=== PATIENT | male | born 1945 | race Caucasian/White ===

== ENCOUNTER → 2017-07-04 | Outpatient (CLI) | payer BC | END | disposition home or self-care (01) | LOC: US 10:04 | DX: I12.9 Hypertensive chronic kidney disease with stage 1 through stage 4 chronic kidney disease, or unspecified chronic kidney disease (principal); N18.3 Chronic kidney disease, stage 3 (moderate); N28.1 Cyst of kidney, acquired; Z87.891 Personal history of nicotine dependence | CPT/HCPCS: 76770 ==

== ENCOUNTER 2019-07-02 10:26 | Emergency (ER) | payer BC ==
[~2019-07-02] VITALS: Ht 177.8 cm; Wt 81.8 kg
[2019-07-02] MEDS ORDERED: ASPIRIN 325 MG TABLET PO ONE (10:45)
[2019-07-02] MEDS ORDERED: IV NORMAL SALINE 1000ML BAG 1,000 ML IV ONE (10:45)
[2019-07-02] MEDS ORDERED: DEXAMETHASONE SOD PHOS 4 MG/ML VIAL IVP ONE (10:45)
--- NOTE | 2019-07-02 10:52 | PHYS DOC ---
Past Medical History Past Medical History: GERD, High Cholesterol Past Surgical History: Other Additional Past Surgical Histo: broken leg Smoking Status: Current Every Day Smoker Alcohol Use: None Drug Use: None Adult General Chief Complaint Chief Complaint: OTHER COMPLAINTS HPI HPI 74-year-old male presents with report of abnormal EKG that was obtained at urgent care prior to arrival. Patient reports he was instructed to present to the ER for further evaluation based on abnormal EKG. Patient reports he had presented due to URI type symptoms including nonproductive cough and shortness of breath which started 2 days ago. Patient denies any chest pain. Denies leg swelling or calf tenderness. Patient reports associated nasal congestion and generalized malaise. Patient reports his has similar symptoms and was diagnosed with upper respiratory inspection and started on antibiotics and other supportive measures. Patient denies history of known arrhythmia. Denies history of cardiac stents. Patient does report cardiac risk factors of high cholesterol and smoking. Review of Systems Review of Systems Constitutional: Denies fever; reports generalized malaise Eyes: Denies redness or eye pain HENT: Reports nasal congestion; denies sore throat Respiratory: Reports cough; denies shortness of breath Cardiovascular: Denies chest pain or palpitations GI: Denies abdominal pain, nausea, or vomiting : Denies dysuria or hematuria Musculoskeletal: Denies back pain or joint pain Integument: Denies rash or skin lesions Neurologic: Denies headache, focal weakness or sensory changes Complete systems were reviewed and found to be within normal limits, except as documented in this note. Current Medications Current Medications Current Medications Medications (Trade) Dose Ordered Sig/Branden Start Time Stop Time Status Last Admin Dose Admin Aspirin (Marissa Aspirin) 325 mg 1X ONCE 07/02/19 10:45 07/02/19 10:46 DC 07/02/19 11:19 325 MG Dexamethasone Sodium Phosphate (Decadron) 10 mg 1X ONCE 07/02/19 10:45 07/02/19 10:47 DC 07/02/19 11:19 10 MG Sodium Chloride 1,000 ml @ 1,000 mls/hr 1X ONCE 07/02/19 10:45 07/02/19 11:44 DC 07/02/19 11:20 1,000 MLS/HR Allergies Allergies Allergies Coded Allergies Type Severity Reaction Last Updated Verified Penicillins Allergy Unknown 04/11/14 No Sulfa (Sulfonamide Antibiotics) Allergy Unknown 04/11/14 No Physical Exam Physical Exam Constitutional: Well developed, well nourished, no acute distress, non-toxic appearance HENT: Normocephalic, atraumatic, oropharynx moist, TMs clear, pharynx without erythema or exudate, nasal congestion noted Eyes: Conjunctiva normal, no discharge Neck: Normal range of motion, no tenderness, supple Cardiovascular: Heart rate normal, irregular rhythm Lungs & Thorax: Bilateral breath sounds clear to auscultation, no wheezing/rales/rhonchi Abdomen: Soft, no tenderness Skin: Warm, dry, no erythema, no rash Extremities: No tenderness, ROM intact, no edema Neurologic: Alert and oriented X 3, no focal deficits noted Psychologic: Affect normal, judgment normal Current Patient Data Vital Signs Vital Signs Date Time Temp Pulse Resp B/P (MAP) Pulse Ox O2 Delivery O2 Flow Rate FiO2 07/02/19 11:07 96 145/62 (89) Room Air 97.0 07/02/19 10:55 98.2 20 97 98.2 Lab Values Laboratory Tests Test 07/02/19 10:48 07/02/19 10:50 07/02/19 12:10 Influenza Type A Antigen Negative (NEGATIVE) Influenza Type B Antigen Negative (NEGATIVE) White Blood Count 9.1 x10^3/uL (4.0-11.0) Red Blood Count 4.44 x10^6/uL (4.30-5.70) Hemoglobin 14.3 g/dL (13.0-17.5) Hematocrit 42.6 % (39.0-53.0) Mean Corpuscular Volume 96 fL (79-100) Mean Corpuscular Hemoglobin 32 pg (25-35) Mean Corpuscular Hemoglobin Concent 34 g/dL (31-37) Red Cell Distribution Width 13.1 % (11.5-14.5) Platelet Count 210 x10^3/uL (140-400) Neutrophils (%) (Auto) 70 % (31-73) Lymphocytes (%) (Auto) 17 % (24-48) L Monocytes (%) (Auto) 11 % (0-9) H Eosinophils (%) (Auto) 2 % (0-3) Basophils (%) (Auto) 1 % (0-3) Neutrophils # (Auto) 6.4 x10^3/uL (1.8-7.7) Lymphocytes # (Auto) 1.5 x10^3/uL (1.0-4.8) Monocytes # (Auto) 1.0 x10^3/uL (0.0-1.1) Eosinophils # (Auto) 0.2 x10^3/uL (0.0-0.7) Basophils # (Auto) 0.0 x10^3/uL (0.0-0.2) Prothrombin Time 12.7 SEC (11.7-14.0) Prothrombin Time INR 1.0 (0.8-1.1) Activated Partial Thromboplast Time 33 SEC (24-38) Sodium Level 137 mmol/L (136-145) Potassium Level 4.2 mmol/L (3.5-5.1) Chloride Level 103 mmol/L (98-107) Carbon Dioxide Level 20 mmol/L (21-32) L Anion Gap 14 (6-14) Blood Urea Nitrogen 23 mg/dL (8-26) Creatinine 1.7 mg/dL (0.7-1.3) H Estimated GFR (Cockcroft-Gault) 39.4 BUN/Creatinine Ratio 14 (6-20) Glucose Level 104 mg/dL (70-99) H Lactic Acid Level 1.4 mmol/L (0.4-2.0) Calcium Level 9.1 mg/dL (8.5-10.1) Magnesium Level 1.9 mg/dL (1.8-2.4) Total Bilirubin 0.4 mg/dL (0.2-1.0) Aspartate Amino Transferase (AST) 25 U/L (15-37) Alanine Aminotransferase (ALT) 29 U/L (16-63) Alkaline Phosphatase 35 U/L (46-116) L Creatine Kinase 76 U/L (39-308) Creatine Kinase MB (Mass) 1.3 ng/mL (0.0-3.6) Creatine Kinase MB Relative Index 1.7 % (0-4) Troponin I Quantitative < 0.017 ng/mL (0.000-0.055) MB-Kza-F-Type Natriuretic Peptide 526 pg/mL (0-449) H Total Protein 7.7 g/dL (6.4-8.2) Albumin 4.0 g/dL (3.4-5.0) Albumin/Globulin Ratio 1.1 (1.0-1.7) Lipase 112 U/L (73-393) Thyroid Stimulating Hormone (TSH) 1.493 uIU/mL (0.358-3.74) Free Thyroxine 1.05 ng/dL (0.76-1.46) Free Triiodothyronine (T3) pg/mL 2.51 pg/mL (2.18-3.98) Urine Collection Type Unknown Urine Color Yellow Urine Clarity Clear Urine pH 5.0 Urine Specific [place] 1.015 Urine Protein Negative mg/dL (NEG-TRACE) Urine Glucose (UA) Negative mg/dL (NEG) Urine Ketones (Stick) Negative mg/dL (NEG) Urine Blood Negative (NEG) Urine Nitrite Negative (NEG) Urine Bilirubin Negative (NEG) Urine Urobilinogen Dipstick 0.2 mg/dL (0.2 mg/dL) Urine Leukocyte Esterase Negative (NEG) Urine RBC 0 /HPF (0-2) Urine WBC 0 /HPF (0-4) Urine Squamous Epithelial Cells Occ /LPF Urine Bacteria 0 /HPF (0-FEW) Urine Hyaline Casts Few /HPF Urine Mucus Slight /LPF Laboratory Tests 07/02/19 10:50 Laboratory Tests 07/02/19 10:50 EKG EKG @1045 NSR at 95bpm, NO ST elevation. frequent PVCs/Bigeminy, no prior EKG per [facility] review Radiology/Procedures Radiology/Procedures PROCEDURE: CHEST PA & LATERAL CHEST PA LATERAL History: Cough, abnormal EKG Comparison: 04/24/2019 chest x-ray exam. Findings: Frontal and lateral views of the chest were obtained. The cardiomediastinal silhouette is normal. Pulmonary vasculature is normal. The lungs are clear. No pleural effusion or pneumothorax is seen. There is no acute bone abnormality. Calcified granuloma involves the left mid thoracic level. Scoliosis noted. IMPRESSION: No acute cardiopulmonary process. Electronically signed by: Vinay Mcdermott MD (07/02/2019 11:06 AM) [id number] Course & Med Decision Making Course & Med Decision Making Pertinent Labs and Imaging studies reviewed. (See chart for details) Patient presents with report of abnormal EKG from urgent care. Patient noted to have bigeminy on EKG which is same from urgent care. No prior EKG found per [facility]. Patient denies palpitations or chest pain. Denies history of cardiac disease. Patient does have cardiac risk factors of high cholesterol and smoking. Patient currently experiencing URI-type symptoms with positive sick contact and spouse. Symptomatic treatment provided for his respiratory symptoms. Labs obtained and posted to chart. Electrolytes within normal limits. Troponin also within normal limits. Thyroid studies obtained. CXR clear. Influenza negative. Patient was found to have elevated Creat. No prior lab value noted per [facility] review. Patient URI symptoms more likely viral bronchitis. Will hold antibiotic therapy at this time. Telemetry monitoring had noted possible run of V. tach while patient was in depa rtment however patient was asymptomatic. Patient offered admission for further observation and monitoring. Patient refusing and requests to be discharged home with close outpatient follow-up. Discussed case with Maite GORDILLO with Dr. Goins (cardiology) who is in agreement with close followup in office but reports patient can allow follow closely with PCP. Patient will likely require Holter monitor and 2D Echo. Patient notified of cardiology recommendations and is in agreement. Patient stable for discharge with outpatient follow-up with PCP/cardiology. Cardiology referral provided. Discussed findings and plan with patient, who acknowledges understanding and agreement. Dragon Disclaimer Dragon Disclaimer This electronic medical record was generated, in whole or in part, using a voice recognition dictation system. Departure Departure Impression: Primary Impression: Arrhythmia Additional Impressions: Ventricular bigeminy Bronchitis Disposition: HOME, SELF-CARE Condition: STABLE Referrals: JEFF SANTIAGO MD (PCP) LISA GOINS MD Patient Instructions: Acute Bronchitis, [id number], Cardiac Arrhythmia Additional Instructions: Please follow up with your family physician and/or cardiology. YOU NEED TO HAVE THE FOLLOWING STUDIES CHECKED: -2D ECHO OF THE HEART -HOLTER MONITOR Scripts Benzonatate (TESSALON PERLE) 100 Mg Capsule 100 MG PO TID PRN for COUGH, #20 CAP Prov: CONNIE JERONIMO DO 07/02/19 Prednisone (PREDNISONE) 20 Mg Tablet 2 TAB PO DAILY, #8 TAB Start this prescription tomorrow, Tuesday07/03/19 Prov: CONNIE JERONIMO DO 07/02/19 Problem Qualifiers Primary Impression: Arrhythmia Arrhythmia type: unspecified cardiac arrhythmia Qualified Codes: I49.9 - Cardiac arrhythmia, unspecified CONNIE JERONIMO DO Jul 02, 2019 10:52
[2019-07-02 11:07] VITALS: BP 145/62
[2019-07-02 11:09] LABS: BASO % 1 % (0-3); EOS # 0.2 x10^3/uL (0.0-0.7); EOS % 2 % (0-3); HEMATOCRIT 42.6 % (39.0-53.0); HEMOGLOBIN 14.3 g/dL (13.0-17.5); LYMPH # 1.5 x10^3/uL (1.0-4.8); LYMPH % 17 % (24-48); MEAN CORPUSCULAR HEMOGLOBIN 32 pg (25-35); MEAN CORPUSCULAR HGB CONC 34 g/dL (31-37); MEAN CORPUSCULAR VOLUME 96 fL (79-100); MONO % 11 % (0-9); NEUT # 6.4 x10^3/uL (1.8-7.7); NEUT % 70 % (31-73); PLATELET COUNT 210 x10^3/uL (140-400); RED BLOOD COUNT 4.44 x10^6/uL (4.30-5.70); RED CELL DISTRIBUTION WIDTH 13.1 % (11.5-14.5); WHITE BLOOD COUNT 9.1 x10^3/uL (4.0-11.0)
--- NOTE | 2019-07-02 11:09 | RAD ---
CHEST PA LATERAL History: Cough, abnormal EKG Comparison: 04/24/2019 chest x-ray exam. Findings: Frontal and lateral views of the chest were obtained. The cardiomediastinal silhouette is normal. Pulmonary vasculature is normal. The lungs are clear. No pleural effusion or pneumothorax is seen. There is no acute bone abnormality. Calcified granuloma involves the left mid thoracic level. Scoliosis noted. IMPRESSION: No acute cardiopulmonary process. Electronically signed by: Vinay Mcdermott MD (07/02/2019 11:06 AM) [id number]
[2019-07-02 11:24] LABS: CALCIUM 9.1 mg/dL (8.5-10.1); CREATININE 1.7 mg/dL (0.7-1.3); GFR 39.4; POTASSIUM 4.2 mmol/L (3.5-5.1)
[2019-07-02 11:26] LABS: PROTHROMBIN TIME PATIENT 12.7 SEC (11.7-14.0)
[2019-07-02 11:28] LABS: ALBUMIN/GLOBULIN RATIO 1.1 (1.0-1.7); MAGNESIUM 1.9 mg/dL (1.8-2.4); TOTAL BILIRUBIN 0.4 mg/dL (0.2-1.0); TOTAL PROTEIN 7.7 g/dL (6.4-8.2)
[2019-07-02 11:33] LABS: INFLUENZA A PATIENT NEGATIVE (NEGATIVE); INFLUENZA B PATIENT NEGATIVE (NEGATIVE)
[2019-07-02 12:36] LABS: FREE T4 1.05 ng/dL (0.76-1.46); THYROID STIM HORMONE (TSH) 1.493 uIU/mL (0.358-3.74)
[2019-07-02 12:44] LABS: BILIRUBIN,URINE NEGATIVE (NEG); CLARITY,URINE CLEAR; COLOR,URINE YELLOW; NITRITE,URINE NEGATIVE (NEG); PROTEIN,URINE NEGATIVE (NEG-TRACE); UROBILINOGEN,URINE 0.2 mg/dL (0.2 mg/dL)
[2019-07-02 13:13] LABS: HYALINE CASTS, URINE FEW /HPF; SQUAMOUS EPITHELIAL CELL,UR OCC /LPF
[2019-07-02 13:14] LABS: BACTERIA,URINE 0 /HPF (0-FEW); RBC,URINE 0 /HPF (0-2); WBC,URINE 0 /HPF (0-4)
[2019-07-02] MEDS ORDERED: BENZ100C PO (13:34)
[2019-07-02] MEDS ORDERED: PRED20TA PO (13:34)
--- NOTE | 2019-07-03 10:07 | EKG ---
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
== END 2019-07-02 13:40 | disposition home or self-care (01) ==
LOC: ER 10:26
DX: J40 Bronchitis, not specified as acute or chronic (principal); R00.8 Other abnormalities of heart beat; I49.9 Cardiac arrhythmia, unspecified; E78.00 Pure hypercholesterolemia, unspecified; K21.9 Gastro-esophageal reflux disease without esophagitis; F17.200 Nicotine dependence, unspecified, uncomplicated; Z88.0 Allergy status to penicillin; Z88.2 Allergy status to sulfonamides
CPT/HCPCS: 36415; 71046; 80053; 81001; 82553; 83605; 83690; 83735; 83880; 84439; 84443; 84481; 84484; 85025; 85610; 85730; 87804; 93005; 96374; 99285; J1100; J7030

== ENCOUNTER → 2019-11-19 | Outpatient (CLI) | payer BC ==
[~2019-11-19] MED LIST: BENZ100C PO; PRED20TA PO
--- NOTE | 2019-11-19 11:56 | CARD ---
MR#: [id number] Date of Study: 11/19/2019 Ordering Physician: APARNA GUERRERO, Referring Physician: APARNA GUERRERO, Tech: Laxmi Edmonds MARKIE APPROVED REPORT EXAM: Two-dimensional and M-mode echocardiogram with Doppler and color Doppler. Other Information Quality : Good Rhythm : Atrial FibrillationTechnically limited study due to INDICATION Murmur 2D DIMENSIONS RVDd2.3 (2.9-3.5cm)Left Atrium(2D)3.1 (1.6-4.0cm) IVSd1.1 (0.7-1.1cm)Aortic Root(2D)2.8 (2.0-3.7cm) LVDd4.7 (3.9-5.9cm)LVOT Diameter2.2 (1.8-2.4cm) PWd0.9 (0.7-1.1cm)LVDs3.2 (2.5-4.0cm) FS (%) 31.8 %SV60.6 ml LVEF(%)59.9 (>50%) Aortic Valve AoV Peak Tay.133.2cm/sAoV VTI25.5cm AO Peak GR.7.1mmHgLVOT Peak Tay.117.1cm/s LVOT VTI 21.02cmAO Mean GR.4mmHg ROSAURA (VMAX)3.03fw2JVF (VTI)3.11cm2 Mitral Valve MV E Anorsjvp24.8cm/sMV DECEL AVIG359qw MV A Bqdhidfn568.9cm/sMV JOE343sj E/A Ratio0.6MVA (PHT)2.05cm2 TDI E/Lateral E'6.4E/Medial E'11.9 LEFT VENTRICLE The left ventricle is normal size. There is normal left ventricular wall thickness. The left ventricu lar systolic function is normal and the ejection fraction is within normal range. The Ejection Fracti on is 55-60%. Septal motion consistent with conduction abnormality. Otherwise, grossly normal wall mo tion. Transmitral Doppler flow pattern is Grade I-abnormal relaxation pattern. RIGHT VENTRICLE The right ventricle is normal size. The right ventricular systolic function is normal. ATRIA The left atrium size is normal. The right atrium size is normal. The interatrial septum is intact wit h no evidence for an atrial septal defect or patent foramen ovale as noted on 2-D or Doppler imaging. AORTIC VALVE The aortic valve is normal in structure and function. Doppler and Color Flow revealed no significant aortic regurgitation. There is no significant aortic valvular stenosis. MITRAL VALVE The mitral valve is normal in structure and function. There is no evidence of mitral valve prolapse. There is no mitral valve stenosis. Doppler and Color Flow revealed no mitral valve regurgitation note d. TRICUSPID VALVE The tricuspid valve is normal in structure and function. Doppler and Color Flow revealed no tricuspid valve regurgitation noted. There is no tricuspid valve stenosis. PULMONIC VALVE The pulmonic valve is not well visualized. Doppler and Color Flow revealed no pulmonic valvular regur gitation. There is no pulmonic valvular stenosis. GREAT VESSELS The aortic root is normal in size. The ascending aorta is normal in size. The IVC is normal in size a nd collapses >50% with inspiration. PERICARDIAL EFFUSION There is no evidence of significant pericardial effusion. Critical Notification Critical Value: No <Conclusion> The left ventricular systolic function is normal and the ejection fraction is within normal range. Th e Ejection Fraction is 55-60%. Septal motion consistent with conduction abnormality. Otherwise, grossly normal wall motion. Technically difficult study Signed by : Tomas Goins, Electronically Approved : 11/19/2019 11:56:20
== END | disposition home or self-care (01) ==
LOC: ECHO 10:32
PROVIDERS: ATTEND Internal Medicine Cardiovascular Disease
DX: R01.1 Cardiac murmur, unspecified (principal)
CPT/HCPCS: 93306